=== PATIENT | male | born 1950 | race Caucasian/White ===

== ENCOUNTER → 2016-07-21 | Outpatient (CLI) | payer OTHER | END | disposition home or self-care (01) | LOC: CFH 10:02 | PROVIDERS: ATTEND Internal Medicine Pulmonary Disease | DX: R05 Cough (principal) | CPT/HCPCS: 71020 ==

== ENCOUNTER → 2017-04-27 | Outpatient (CLI) | payer OTHER ==
[~2017-04-27] MED LIST: REGADENOSON 0.4 MG/5 ML SYRINGE ONE
== END | disposition home or self-care (01) ==
LOC: CFH 12:02
PROVIDERS: ATTEND Internal Medicine Cardiovascular Disease
DX: I25.709 Atherosclerosis of coronary artery bypass graft(s), unspecified, with unspecified angina pectoris (principal); I25.2 Old myocardial infarction; I44.0 Atrioventricular block, first degree; Z95.1 Presence of aortocoronary bypass graft
CPT/HCPCS: 78452; 93017; A9502; J2785

== ENCOUNTER 2017-10-12 20:00 | Inpatient (IN) | payer OTHER, MEDICARE ==
[~2017-10-12] VITALS: Ht 182.9 cm; Wt 115.5 kg
[~2017-10-12 20:00] MED LIST changes: +ASPI-496 PO; +ATOR40TA78 PO; +CLOP75TA PO; +DOCU100T3 PO; +ISOS30TA8 PO; +LISI-167 PO; +METF500T5 PO; +METO25TA35 PO; +PANT40TA5 PO; -REGADENOSON 0.4 MG/5 ML SYRINGE ONE
[2017-10-12] MEDS ORDERED: LORA-445 PO (20:29)
[2017-10-12] MEDS ORDERED: SODIUM CHLORIDE FLUSH 10ML SYR IVF ONE (20:30)
[2017-10-12 20:34] LABS: BASOPHILS # (AUTO) 0.01 x10^3/uL (0-0.1); BASOPHILS % (AUTO) 0 % (0-1); EOSINOPHILS # (AUTO) 0.16 x10^3/uL (0-0.4); EOSINOPHILS % (AUTO) 2 % (1-7); LYMPHOCYTES # (AUTO) 2.15 x10^3/uL (1-3.4); LYMPHOCYTES % (AUTO) 24 % (22-44); MD NO; MEAN CORPUSCULAR HEMOGLOBIN 30.4 pg (27.5-34.5); MEAN CORPUSCULAR HGB CONC 33.9 g/dL (33.2-36.2); MEAN CORPUSCULAR VOLUME 89.6 fL (81-97); MEAN PLATELET VOLUME 9.2 fL (7.4-10.4); MONOCYTES # (AUTO) 0.64 x10^3/uL (0.2-0.8); MONOCYTES % (AUTO) 7 % (2-9); NEUTROPHILS # (AUTO) 5.86 x10^3/uL (1.8-6.8); NEUTROPHILS % (AUTO) 66 % (42-75); PLATELET COUNT 213 x10^3/uL (130-400); RED CELL DISTRIBUTION WIDTH 13.5 % (9.4-14.8)
[2017-10-12 20:42] LABS: ALANINE AMINOTRANSFERASE 26 U/L (12-78); ALBUMIN 3.8 g/dL (3.4-5.0); ANION GAP 9 mmol/L (5-15); CHLORIDE 106 mmol/L (98-107)
[2017-10-12 20:47] LABS: ALKALINE PHOSPHATASE 120 U/L (45-117); BILIRUBIN,TOTAL 0.3 mg/dL (0.2-1.0); TOTAL PROTEIN 7.2 g/dL (6.4-8.2); TROPONIN I < 0.015 ng/mL (0.000-0.045)
[2017-10-12] MEDS ORDERED: ENALAPRILAT 1.25 MG/ML, 2ML IVPush PRN (23:00)
[2017-10-12] MEDS ORDERED: POLYETHYLENE GLYCOL 17 GM PACKET PO PRN (23:00)
[2017-10-12] MEDS ORDERED: morphine SULFATE 10 MG/ML, 1ML IVPush PRN (23:00)
[2017-10-12] MEDS ORDERED: DEXTROSE 4 GM TAB.CHEW PO PRN (23:00)
[2017-10-12] MEDS ORDERED: DOCUSATE 100 MG CAPSULE PO PRN (23:00)
[2017-10-12] MEDS ORDERED: DEXTROSE 50%, 50ML SYRINGE IVPush PRN (23:00)
[2017-10-12] MEDS ORDERED: ONDANSETRON ODT 4 MG PO PRN (23:00)
[2017-10-12] MEDS ORDERED: NITROGLYCERIN 0.4 MG BOTTLE (25 TABS) SL PRN (23:00)
[2017-10-12] MEDS ORDERED: BISACODYL 10 MG SUPP PR PRN (23:00)
[2017-10-12] MEDS ORDERED: GLUCAGON 1 MG IM PRN (23:00)
[2017-10-12 23:15] VITALS: BP 128/75
[2017-10-13 02:46] LABS: CHOLESTEROL, TOTAL 113 mg/dL (140-239); TRIGLYCERIDES 242 mg/dL (50-200); VLDL CHOLESTEROL 48 mg/dL (0-25)
[2017-10-13 02:50] LABS: CHOL/HDL RATIO 3.2; HDL CHOL % 31 % (26-37); HDL CHOLESTEROL (DIRECT) 35 mg/dL (40-60); LDL CHOLESTEROL,CALCULATED 30 mg/dL (54-169); LDL/HDL RATIO 0.9 (0.5-3.0); TROPONIN I < 0.015 ng/mL (0.000-0.045)
[2017-10-13] MEDS ORDERED: MAGNESIUM SULFATE PMX 2GM/50ML 50 ML IV ONE (03:00)
[2017-10-13 08:29] VITALS: BP 107/67
[2017-10-13 08:34] LABS: TROPONIN I < 0.015 ng/mL (0.000-0.045)
[2017-10-13] MEDS: INSULIN LISPRO 100 UNITS/ML, PEN SQ-INSULIN SCH ×4 (08:50→21:46)
[2017-10-13] MEDS: PANTOPROZOLE 40MG TABLET PO SCH ×2 (08:51→21:43)
[2017-10-13] MEDS: SODIUM CHLORIDE FLUSH 10ML SYR IVF SCH ×2 (08:51→21:47)
[2017-10-13] MEDS: LISINOPRIL 10 MG TABLET PO SCH (08:51)
[2017-10-13] MEDS: CLOPIDOGREL 75 MG TABLET PO SCH (08:51)
[2017-10-13] MEDS ORDERED: METOPROLOL TARTRATE 25 MG TABLET PO SCH (09:00)
[2017-10-13 12:50] VITALS: BP 139/78
[2017-10-13] MEDS: ACETAMINOPHEN 325 MG TABLET PO PRN ×2 (15:20→21:44)
[2017-10-13 19:11] VITALS: BP 117/66
[2017-10-13] MEDS ORDERED: DIPHENHYDRAMINE 25 MG CAPSULE ONE (21:42)
[2017-10-13] MEDS: ASPIRIN 81 MG TABLET CHEW PO SCH (21:43)
[2017-10-13] MEDS: ATORVASTATIN 40 MG TABLET PO SCH (21:43)
[2017-10-13] MEDS ORDERED: DIPHENHYDRAMINE 25 MG CAPSULE PO PRN (22:00)
[2017-10-14 01:12] VITALS: BP 129/76
[2017-10-14 07:41] VITALS: BP 154/83
[2017-10-14] MEDS: CLOPIDOGREL 75 MG TABLET PO SCH (08:24)
[2017-10-14] MEDS: PANTOPROZOLE 40MG TABLET PO SCH ×2 (08:24→20:43)
[2017-10-14] MEDS: SODIUM CHLORIDE FLUSH 10ML SYR IVF SCH ×2 (08:24→20:43)
[2017-10-14] MEDS: LISINOPRIL 10 MG TABLET PO SCH (08:25)
[2017-10-14] MEDS: INSULIN LISPRO 100 UNITS/ML, PEN SQ-INSULIN SCH ×4 (08:27→20:50)
[2017-10-14 08:44] LABS: BASOPHILS # (AUTO) 0.02 x10^3/uL (0-0.1); BASOPHILS % (AUTO) 0 % (0-1); EOSINOPHILS # (AUTO) 0.15 x10^3/uL (0-0.4); EOSINOPHILS % (AUTO) 2 % (1-7); LYMPHOCYTES # (AUTO) 1.27 x10^3/uL (1-3.4); LYMPHOCYTES % (AUTO) 17 % (22-44); MD NO; MEAN CORPUSCULAR HEMOGLOBIN 30.3 pg (27.5-34.5); MEAN CORPUSCULAR VOLUME 89.1 fL (81-97); MEAN PLATELET VOLUME 8.9 fL (7.4-10.4); MONOCYTES # (AUTO) 0.47 x10^3/uL (0.2-0.8); MONOCYTES % (AUTO) 6 % (2-9); NEUTROPHILS # (AUTO) 5.47 x10^3/uL (1.8-6.8); NEUTROPHILS % (AUTO) 74 % (42-75); PLATELET COUNT 194 x10^3/uL (130-400); RED BLOOD COUNT 4.66 x10^6/uL (4.38-5.82); RED CELL DISTRIBUTION WIDTH 13.9 % (9.4-14.8)
[2017-10-14 08:56] LABS: ANION GAP 6 mmol/L (5-15); CALCIUM 9.3 mg/dL (8.5-10.1); CHLORIDE 108 mmol/L (98-107); CREATININE 0.87 mg/dL (0.7-1.3)
[2017-10-14] MEDS ORDERED: REGADENOSON 0.4 MG/5 ML SYRINGE ONE (09:00)
[2017-10-14 14:11] VITALS: BP 111/65
[2017-10-14 20:15] VITALS: BP 135/70
[2017-10-14 20:16] VITALS: BP 138/75
[2017-10-14 20:17] VITALS: BP 142/82
[2017-10-14] MEDS: HEPARIN 5,000 UNITS/ML, 1ML SQ SCH (20:42)
[2017-10-14] MEDS: ACETAMINOPHEN 325 MG TABLET PO PRN (20:43)
[2017-10-14] MEDS: ASPIRIN 81 MG TABLET CHEW PO SCH (20:43)
[2017-10-14] MEDS: ATORVASTATIN 40 MG TABLET PO SCH (20:43)
[2017-10-15 02:42] VITALS: BP 156/80
[2017-10-15] MEDS: HEPARIN 5,000 UNITS/ML, 1ML SQ SCH (04:57)
[2017-10-15 06:57] VITALS: BP 135/74
[2017-10-15] MEDS: INSULIN LISPRO 100 UNITS/ML, PEN SQ-INSULIN SCH (07:00)
[2017-10-15 08:21] VITALS: BP 122/77
[2017-10-15 08:22] VITALS: BP 128/77
[2017-10-15 08:23] VITALS: BP 150/72
[2017-10-15] MEDS: SODIUM CHLORIDE FLUSH 10ML SYR IVF SCH (09:00)
[2017-10-15] MEDS ORDERED: SODIUM CHLORIDE 0.9% 1,000 ML IV SCH (09:00)
[2017-10-15] MEDS: LISINOPRIL 10 MG TABLET PO SCH (09:34)
[2017-10-15] MEDS: PANTOPROZOLE 40MG TABLET PO SCH (09:34)
[2017-10-15] MEDS: CLOPIDOGREL 75 MG TABLET PO SCH (09:34)
== END 2017-10-15 11:30 | disposition home or self-care (01) | DRG 189 ==
LOC: ED 20:31 → OBSVTOIN 21:55 → EDIP 21:55 → 5SO 23:11
PROVIDERS: ADMIT Internal Medicine; ATTEND Internal Medicine
DX: J96.01 Acute respiratory failure with hypoxia (principal); F41.9 Anxiety disorder, unspecified; I25.10 Atherosclerotic heart disease of native coronary artery without angina pectoris; E11.9 Type 2 diabetes mellitus without complications; E78.5 Hyperlipidemia, unspecified; G47.33 Obstructive sleep apnea (adult) (pediatric); I10 Essential (primary) hypertension; I25.2 Old myocardial infarction; R00.1 Bradycardia, unspecified; E66.9 Obesity, unspecified; Z68.34 Body mass index [BMI] 34.0-34.9, adult; K21.9 Gastro-esophageal reflux disease without esophagitis; Z66 Do not resuscitate; Z82.49 Family history of ischemic heart disease and other diseases of the circulatory system; Z87.891 Personal history of nicotine dependence; Z95.1 Presence of aortocoronary bypass graft; Z95.5 Presence of coronary angioplasty implant and graft
CPT/HCPCS: 36415; 71045; 78452; 80048; 80053; 80061; 82962; 83605; 83735; 83880; 84484; 85025; 85379; 93005; 93017; 93306; 99285; J1644; J2785; A9502; C9898; J1815; J3475; Q0163

== ENCOUNTER 2019-09-21 09:21 | Observation (INO) | payer MEDICARE ==
[~2019-09-21] VITALS: Ht 182.9 cm; Wt 117.6 kg
[~2019-09-21 09:21] MED LIST changes: +LORA-445 PO; +METF500T17 PO; -METF500T5 PO
[2019-09-21] MEDS ORDERED: SODIUM CHLORIDE FLUSH 10ML SYR IVF ONE (09:30)
--- NOTE | 2019-09-21 09:35 | NUR ---
SARAH MONTES, PT WITH SOB INCREASED TODAY, PER EMS PT WITH RUNS OF PVC/BIGEM ON CARDIAC MONTIOR. PT WITH SOB OVER THE LAST COUPLE MONTHS PER HIS REPORT, STATES HE HAD HIS LUNG DOCTOR CHECK HIS LUNGS AND THAT IS NOT IT. PT WITH HX OF NM, CABG. 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 PT BEGINS TO HYPERVENTILATE AND STATES "ITS HAPPENING NOW" DURING RUNS OF BIGEM. PT DENIES CP AT THIS TIME. 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 ERPROVIDER IN TO EVAL PT, ORDERS RECIEVED
[2019-09-21 09:53] LABS: BASOPHILS # (AUTO) 0.02 x10^3/uL (0-0.1); BASOPHILS % (AUTO) 0 % (0-1); EOSINOPHILS # (AUTO) 0.11 x10^3/uL (0-0.4); EOSINOPHILS % (AUTO) 2 % (1-7); LYMPHOCYTES # (AUTO) 1.69 x10^3/uL (1-3.4); LYMPHOCYTES % (AUTO) 25 % (22-44); MD NO; MEAN CORPUSCULAR HEMOGLOBIN 29.8 pg (27.5-34.5); MEAN CORPUSCULAR HGB CONC 33.4 g/dL (33.2-36.2); MEAN CORPUSCULAR VOLUME 89.3 fL (81-97); MONOCYTES # (AUTO) 0.46 x10^3/uL (0.2-0.8); MONOCYTES % (AUTO) 7 % (2-9); NEUTROPHILS # (AUTO) 4.59 x10^3/uL (1.8-6.8); NEUTROPHILS % (AUTO) 67 % (42-75); PLATELET COUNT 200 x10^3/uL (130-400); RED BLOOD COUNT 4.85 x10^6/uL (4.38-5.82); RED CELL DISTRIBUTION WIDTH 13.7 % (9.4-14.8)
[2019-09-21] MEDS ORDERED: PLEASE ENTER HEIGHT AND WEIGHT MC SCH (10:00)
[2019-09-21 10:06] LABS: ALANINE AMINOTRANSFERASE 29 U/L (12-78); ALBUMIN 3.9 g/dL (3.4-5.0); ANION GAP 10 mmol/L (5-15); CALCIUM 9.4 mg/dL (8.5-10.1); CHLORIDE 110 mmol/L (98-107)
[2019-09-21 10:10] LABS: ALKALINE PHOSPHATASE 135 U/L (45-117); BILIRUBIN,TOTAL 0.4 mg/dL (0.2-1.0); TOTAL PROTEIN 7.5 g/dL (6.4-8.2); TROPONIN I < 0.015 ng/mL (0.000-0.045)
--- NOTE | 2019-09-21 11:04 | NUR ---
PT RESTING COMFORTABLY ON GURNEY AT THIS TIME, PT TO BE ADMITTED, ERPROVIDER IN TO UPDATE PT ON POC. VSS, NO NEEDS AT THIS TIME
--- NOTE | 2019-09-21 11:54 | NUR ---
REPORT TO RECIEVING RN
[2019-09-21] MEDS ORDERED: MAGNESIUM SULFATE PMX 2GM/50ML 50 ML IV ONE (12:00)
[2019-09-21] MEDS ORDERED: LORazepam 0.5MG TABLET PO PRN (12:00)
[2019-09-21] MEDS ORDERED: METOPROLOL TARTRATE 25 MG TAB PO SCH (12:00)
[2019-09-21] MEDS ORDERED: BISACODYL 5 MG EC TABLET PO PRN (12:00)
[2019-09-21] MEDS ORDERED: ONDANSETRON 2MG/ML, 2ML IV PRN (12:00)
[2019-09-21] MEDS ORDERED: ZOLPIDEM 5MG TABLET PO PRN (12:00)
[2019-09-21] MEDS ORDERED: ACETAMINOPHEN 650 MG/20.3 ML UDC PO PRN (12:00)
[2019-09-21 12:20] VITALS: BP 139/76
[2019-09-21 14:40] VITALS: BP 127/74
[2019-09-21] MEDS: metFORMIN 500 MG TABLET PO SCH (17:30)
[2019-09-21 17:57] LABS: TROPONIN I < 0.015 ng/mL (0.000-0.045)
[2019-09-21] MEDS ORDERED: ATORVASTATIN 40 MG TABLET PO SCH (21:00)
[2019-09-21 21:33] VITALS: BP 118/66
[2019-09-21] MEDS: PANTOPRAZOLE 40MG TABLET PO SCH (21:37)
[2019-09-21] MEDS: SODIUM CHLORIDE FLUSH 10ML SYR IVF SCH (21:38)
[2019-09-22 02:38] VITALS: BP 138/77
[2019-09-22 05:40] LABS: ANION GAP 7 mmol/L (5-15); CHLORIDE 108 mmol/L (98-107); CREATININE 0.98 mg/dL (0.7-1.3)
[2019-09-22] MEDS ORDERED: ASPIRIN 81 MG TABLET EC PO SCH (06:00)
[2019-09-22] MEDS ORDERED: METO25TA35 PO (08:30)
[2019-09-22] MEDS ORDERED: MAGN400T26 PO (08:30)
[2019-09-22 08:40] VITALS: BP 138/78
[2019-09-22] MEDS: PANTOPRAZOLE 40MG TABLET PO SCH (08:42)
[2019-09-22] MEDS: metFORMIN 500 MG TABLET PO SCH (08:42)
[2019-09-22] MEDS: SODIUM CHLORIDE FLUSH 10ML SYR IVF SCH (08:43)
[2019-09-22] MEDS ORDERED: LISINOPRIL 10 MG TABLET PO SCH (09:00)
== END 2019-09-22 09:51 | disposition home or self-care (01) ==
LOC: ED 10:14 → INTOOBSV 11:21 → EDIP 11:21 → 5SO 12:04
PROVIDERS: ADMIT Internal Medicine; ATTEND Internal Medicine Cardiovascular Disease
DX: I49.3 Ventricular premature depolarization (principal); E78.5 Hyperlipidemia, unspecified; F41.9 Anxiety disorder, unspecified; I10 Essential (primary) hypertension; I25.10 Atherosclerotic heart disease of native coronary artery without angina pectoris; I44.1 Atrioventricular block, second degree; J44.9 Chronic obstructive pulmonary disease, unspecified; R73.03 Prediabetes; I25.2 Old myocardial infarction; Z95.1 Presence of aortocoronary bypass graft; Z95.5 Presence of coronary angioplasty implant and graft; Z79.899 Other long term (current) drug therapy
CPT/HCPCS: 36415; 71045; 80048; 80053; 83735; 83880; 84484; 85025; 93005; 96365; 99285; G0378; J3475

== ENCOUNTER → 2020-09-12 | Outpatient (CLI) | payer MEDICARE ==
[~2020-09-12] MED LIST changes: +MAGN400T26 PO; -PANT40TA5 PO; +PANT40TA6 PO
== END | disposition home or self-care (01) ==
LOC: CFH 09:49
PROVIDERS: ATTEND Registered Nurse
DX: Z12.2 Encounter for screening for malignant neoplasm of respiratory organs (principal); R91.8 Other nonspecific abnormal finding of lung field; Z87.891 Personal history of nicotine dependence
CPT/HCPCS: 71271